=== PATIENT | male | born 1985 | race Caucasian/White ===

== ENCOUNTER → 2018-08-23 | Outpatient (CLI) | payer OTHER ==
--- NOTE | 2018-08-23 13:29 | Diagnostic Imaging Report ---
TECHNIQUE: Magnetic resonance imaging of the LEFT HAND was performed WITHOUT injected contrast. The exam is optimized to evaluate the region about the skin marker. The skin marker overlies the thenar eminence. HISTORY: Laceration, pain, numbness, loss of press feeder broomcorn, stitches July 25, 2018 COMPARISON: None. FINDINGS: BONES: No focal or infiltrative bone marrow replacing abnormalities identified. No acute fracture or osteonecrosis. JOINTS: No dislocation or joint effusion. SOFT TISSUES: A focal superficial soft tissue defect at the thenar eminence, the underlying muscle appears intact. No visible soft tissue defect in the region of the tendons, the visualized tendons also appear intact. No visible soft tissue defect in the region of the carpal tunnel, the median nerve appears normal. No drainable fluid collection. IMPRESSION: 1. Superficial soft tissue defect at the thenar eminence. 2. No abscess or osteomyelitis. 3. Intact tendons. Signed by: Dr. Frandy Skelton D.O., M.M.M. on 08/23/2018 1:26 PM
== END ==
LOC: MRI 08:48
PROVIDERS: ATTEND Family Medicine
DX: S61.412D Laceration without foreign body of left hand, subsequent encounter (principal)